=== PATIENT | male | born 1950 | race Caucasian/White ===

== ENCOUNTER 2023-07-29 12:57 | Emergency (ER) | payer OTHER, SELFPAY ==
[2023-07-29] VITALS (10 sets, daily range): BP systolic 139–158; BP diastolic 97–121; PULSE 63–70; RESP 5–18; TEMP 36; O2SAT 89–99; BMI 30.7
--- NOTE | 2023-07-29 13:18 | ED_ITS ---
HPI - Extremity Injury (Upper) General Time Seen by Provider: 13:15 <Demi Gunn MD - Last Filed: 07/29/23 15:40> Date Seen: 07/29/23 <Demi Gunn MD - Last Filed: 07/29/23 15:40> Chief Complaint: Extremity Pain/Injury, Upper <Demi Gunn MD - Last Filed: 07/29/23 15:40> Stated Complaint: R shoulder pain <Demi Gunn MD - Last Filed: 07/29/23 15:40> Time Seen by Provider: 07/29/23 13:04 <Demi Gunn MD - Last Filed: 07/29/23 15:40> Source: patient and RN notes reviewed <Demi Gunn MD - Last Filed: 07/29/23 15:40> Mode of arrival: ambulatory <Demi Gunn MD - Last Filed: 07/29/23 15:40> Limitations: no limitations <Demi Gunn MD - Last Filed: 07/29/23 15:40> History of Present Illness HPI narrative: Patient is coming to the ED with complaint of right shoulder pain after falling crossing over a wire fence today. He fell when he didn't clear his foot, landed on the outstretched right arm. Had pain in the upper arm near the shoulder after, no LOC, did not hit head. Is having no other complaints of other injury, no breathing difficulty, no chest/chest wall pain. Neck and back are fine, no acute pain. No numbness or tingling in the right arm. <Demi Gunn MD - Last Filed: 07/29/23 15:40> MD complaint: injury to: right and shoulder <Demi Gunn MD - Last Filed: 07/29/23 15:40> Related Data Allergies/Adverse Reactions: Allergies Allergy/AdvReac Type Severity Reaction Status Date / Time No Known Drug Allergies Allergy Verified 07/29/23 13:05 <Demi Gunn MD - Last Filed: 07/29/23 15:40> Review of Systems Narrative: As per HPI. <Demi Gunn MD - Last Filed: 07/29/23 15:40> [facility] Social History: Social History Smoking Status: Never smoker Do you use any of these nicotine containing products: None Second hand tobacco smoke exposure: Yes How often do you have a drink containing alcohol: 2-4 times a month How many standard drinks containing alcohol do you have on a typical day: 1 or 2 How often do you have six or more drinks on one occasion: Never AUDIT-C Alcohol total score: 2 Non-prescribed substance use: denies use service: Yes <Demi Gunn MD - Last Filed: 07/29/23 15:40> Exam Const: Vital Signs, click to edit/add: Vital Signs - 24 hr 07/29/23 13:08 07/29/23 14:03 07/29/23 14:26 Temperature 96.8 F L Pulse Rate Pulse Rate [Pulse Oximeter] 70 Respiratory Rate 18 Blood Pressure Blood Pressure [Le ft Upper Arm] 147/107 H Pulse Oximetry 95 94 97 Oxygen Delivery Me thod Room Air Oxygen Flow Rate 07/29/23 14:26 07/29/23 14:27 07/29/23 14:34 Temperature Pulse Rate 64 63 Pulse Rate [Pulse Oximeter] Respiratory Rate Blood Pressure 144/97 H Blood Pressure [Le ft Upper Arm] Pulse Oximetry 98 89 96 Oxygen Delivery Me thod Nasal Cannula Oxygen Flow Rate 4 07/29/23 14:35 07/29/23 14:41 07/29/23 14:42 Temperature Pulse Rate 67 65 65 Pulse Rate [Pulse Oximeter] Respiratory Rate 15 Blood Pressure 139/103 H 158/110 H Blood Pressure [Le ft Upper Arm] Pulse Oximetry 95 93 94 Oxygen Delivery Me thod Oxygen Flow Rate 07/29/23 14:45 07/29/23 14:48 Temperature Pulse Rate 69 68 Pulse Rate [Pulse Oximeter] Respiratory Rate 5 L Blood Pressure 146/121 H Blood Pressure [Le ft Upper Arm] Pulse Oximetry 99 99 Oxygen Delivery Me thod Oxygen Flow Rate Patient was observed holding his right arm straight along his body walking into the ED of his own accord. He is alert, interactive, no apparent distress. Sclera clear, face atraumatic, speaking in complete sentences. He has no palpable tenderness over his neck or back. Lungs are clear, good air entry, no wheezing or crackles. CV regular rate and rhythm, no murmur. Clavicles are nontender, AC joint on the right side is nontender. He complains of pain over the glenohumeral joint. There is maybe a sulcus that is more prominent posteriorly along the glenohumeral joint. He does still allow me to do some range of motion of his shoulder but it increases his pain. Mid arm throughout the lower extremity is without any complaints of pain on palpation. He can fully flex and extend rotate the elbow with his upper arm along his side. Wrist and hand are fully functional, neurovascular is intact. <Demi Gunn MD - Last Filed: 07/29/23 15:40> Vital Signs, click to edit/add: Vital Signs - 24 hr 07/29/23 13:08 07/29/23 14:03 07/29/23 14:26 Temperature 96.8 F L Pulse Rate Pulse Rate [Pulse Oximeter] 70 Respiratory Rate 18 Blood Pressure Blood Pressure [Le ft Upper Arm] 147/107 H Pulse Oximetry 95 94 97 Oxygen Delivery Me thod Room Air Oxygen Flow Rate 07/29/23 14:26 07/29/23 14:27 07/29/23 14:34 Temperature Pulse Rate 64 63 Pulse Rate [Pulse Oximeter] Respiratory Rate Blood Pressure 144/97 H Blood Pressure [Le ft Upper Arm] Pulse Oximetry 98 89 96 Oxygen Delivery Me thod Nasal Cannula Oxygen Flow Rate 4 07/29/23 14:35 07/29/23 14:41 07/29/23 14:42 Temperature Pulse Rate 67 65 65 Pulse Rate [Pulse Oximeter] Respiratory Rate 15 Blood Pressure 139/103 H 158/110 H Blood Pressure [Le ft Upper Arm] Pulse Oximetry 95 93 94 Oxygen Delivery Me thod Oxygen Flow Rate 07/29/23 14:45 07/29/23 14:48 Temperature Pulse Rate 69 68 Pulse Rate [Pulse Oximeter] Respiratory Rate 5 L Blood Pressure 146/121 H Blood Pressure [Le ft Upper Arm] Pulse Oximetry 99 99 Oxygen Delivery Me thod Oxygen Flow Rate <Nathaniel Brar MD - Last Filed: 07/29/23 15:41> Documenting provider has reviewed patient's vital signs: yes <Demi Gunn MD - Last Filed: 07/29/23 15:40> Course Course ED Course: Will obtain xray to see if there is an underlying fracture. Have reviewed with patient that there can be rotator cuff injury in this type of fall but would not be diagnosable off of an xray. First of all, rule out fracture with plain imaging, dislocation as well. Declines need for pain management at this time. <Demi Gunn MD - Last Filed: 07/29/23 15:40> Reevaluation(s) Time of Reevaluation #1: 14:17 <Demi Gunn MD - Last Filed: 07/29/23 15:40> Reevaluation #1: Reviewed with patient that his shoulder is actually dislocated. There may be a little avulsion fracture, will need to see post reduction imaging. Did attempt to gently manipulate his shoulder, it is apparent that we were going to need sedation for him. He had requested pain management, had just received 4 mg IV Zofran and 4 mg IV morphine prior to my a attempts at manipulating his shoulder. Did try to guide the humeral head from his axilla and rotate the humerus but there was no reduction of the shoulder. Patient will need to be removed from the exam room for intake into a different room so that we can do conscious sedation. I have let staff know. Patient on his past medical history did have cardiac stent placement this past December. He denies any other chronic medical issues. He takes Crestor at bedtime, is taking metoprolol, aspirin and Plavix in the morning. He notes he is on 1 other medicine but cannot remember what it is. Denies any issues with prior anesthesia. He did have a candy bar at noon but that is his only oral intake. <Demi Gunn MD - Last Filed: 07/29/23 15:40> Time of Reevaluation #2: 14:46 <Demi Gunn MD - Last Filed: 07/29/23 15:40> Reevaluation #2: Completed reduction of shoulder dislocation, post imaging two views shows reapproximation of the shoulder into the joint. There is still the small little possible bony island that represents a fracture from the dislocation. Patient is recovering and awakening from his sedation. Will place a sling on his arm, discharged home with orthopedic follow-up once he has completely recovered from his sedation. He has a good peripheral pulse, not awake enough at this time to assess his sense of numbness or tingling. <Demi Gunn MD - Last Filed: 07/29/23 15:40> Time of Reevaluation #3: 15:13 <Demi Gunn MD - Last Filed: 07/29/23 15:40> Reevaluation #3: Patient is resting comfortably, very minimally tired appearing after his sedation. Have reviewed the possible fracture from the dislocation. Orthopedics can further go over this with him. His arm is in a sling. He is neurologically intact. <Demi Gunn MD - Last Filed: 07/29/23 15:40> Vital Signs Vital signs: Initial Vital Signs Temperature 96.8 F L 07/29/23 13:08 Temperature Source Temporal Artery Scan 07/29/23 13:08 Pulse Rate 70 07/29/23 13:08 Pulse Rhythm Regular 07/29/23 13:08 Respiratory Rate 18 07/29/23 13:08 Blood Pressure 147/107 H 07/29/23 13:08 Blood Pressure Mean 120 H 07/29/23 13:08 Blood Pressure Position Sitting 07/29/23 13:08 Pulse Oximetry 95 07/29/23 13:08 Oxygen Delivery Method Room Air 07/29/23 13:08 Vital Signs Temperature 96.8 F L 07/29/23 13:08 Pulse Rate 70 07/29/23 13:08 Respiratory Rate 18 07/29/23 13:08 Blood Pressure 147/107 H 07/29/23 13:08 Pulse Oximetry 95 07/29/23 13:08 Oxygen Delivery Method Room Air 07/29/23 13:08 Temperature 96.8 F L 07/29/23 13:08 Pulse Rate 68 07/29/23 14:48 Respiratory Rate 5 L 07/29/23 14:48 Blood Pressure 146/121 H 07/29/23 14:48 Pulse Oximetry 99 07/29/23 14:48 Oxygen Delivery Method Nasal Cannula 07/29/23 14:26 Oxygen Flow Rate 4 07/29/23 14:26 <Demi Gunn MD - Last Filed: 07/29/23 15:40> Initial Vital Signs Temperature 96.8 F L 07/29/23 13:08 Temperature Source Temporal Artery Scan 07/29/23 13:08 Pulse Rate 70 07/29/23 13:08 Pulse Rhythm Regular 07/29/23 13:08 Respiratory Rate 18 07/29/23 13:08 Blood Pressure 147/107 H 07/29/23 13:08 Blood Pressure Mean 120 H 07/29/23 13:08 Blood Pressure Position Sitting 07/29/23 13:08 Pulse Oximetry 95 07/29/23 13:08 Oxygen Delivery Method Room Air 07/29/23 13:08 Vital Signs Temperature 96.8 F L 07/29/23 13:08 Pulse Rate 70 07/29/23 13:08 Respiratory Rate 18 07/29/23 13:08 Blood Pressure 147/107 H 07/29/23 13:08 Pulse Oximetry 95 07/29/23 13:08 Oxygen Delivery Method Room Air 07/29/23 13:08 Temperature 96.8 F L 07/29/23 13:08 Pulse Rate 68 07/29/23 14:48 Respiratory Rate 5 L 07/29/23 14:48 Blood Pressure 146/121 H 07/29/23 14:48 Pulse Oximetry 99 07/29/23 14:48 Oxygen Delivery Method Nasal Cannula 07/29/23 14:26 Oxygen Flow Rate 4 07/29/23 14:26 <Nathaniel Brar MD - Last Filed: 07/29/23 15:41> Medications Administered Medications: Discontinued Medications Generic Name Dose Route Start Last Admin Trade Name Freq PRN Reason Stop Dose Admin Morphine Sulfate 4 mg 07/29/23 14:03 07/29/23 14:10 Morphine 4 Mg/Ml Inj IVP 07/29/23 14:04 4 mg ONCE ONE Administration Ondansetron HCl 4 mg 07/29/23 14:03 07/29/23 14:09 Ondansetron 2 Mg/Ml Inj IVP 07/29/23 14:04 4 mg ONCE ONE Administration <Demi Gunn MD - Last Filed: 07/29/23 15:40> Discontinued Medications Generic Name Dose Route Start Last Admin Trade Name Marta PRN Reason Stop Dose Admin Morphine Sulfate 4 mg 07/29/23 14:03 07/29/23 14:10 Morphine 4 Mg/Ml Inj IVP 07/29/23 14:04 4 mg ONCE ONE Administration Ondansetron HCl 4 mg 07/29/23 14:03 07/29/23 14:09 Ondansetron 2 Mg/Ml Inj IVP 07/29/23 14:04 4 mg ONCE ONE Administration <Nathaniel Brar MD - Last Filed: 07/29/23 15:41> MDM - Extremity Injury (Upper) MDM Narrative Medical decision making narrative: I was asked to assist with sedation, the patient received 80 mg of propofol. He had good muscle relaxation, Dr. Montes was able to relocate the shoulder, x-ray is pending. RT was here throughout patient had a transient nasal trumpet placed in the started moving his head around and I had an excellent O2 sat of 96%. He is starting to wake up. He tolerated the procedure very well. <Demi Gunn MD - Last Filed: 07/29/23 15:40> I was asked to assist with sedation, the patient received 80 mg of propofol. He had good muscle relaxation, Dr. Gastelum was able to relocate the shoulder, x-ray is pending. RT was here throughout patient had a transient nasal trumpet placed in the started moving his head around and I had an excellent O2 sat of 96%. He is starting to wake up. He tolerated the procedure very well. <Nathaniel Brar MD - Last Filed: 07/29/23 15:41> Imaging Data XR right shoulder: Attestation: I have reviewed the pertinent imaging results. <Demi Valentin MD - Last Filed: 07/29/23 15:40> My impression: I see anterior dislocation, possible fracture fragment seen. Will await Radiology over-read. <Demi Gunn MD - Last Filed: 07/29/23 15:40> Radiologist's impression: Patient: FLAQUITA MONTES Facility:?[facility] Patient ID:?[id number] Site Patient ID:?[id number]. Site :?[id number] Study:?XRay Shoulder Right 3 views-07/29/2023 2:00:10 PM Ordering Physician:Teri Simms Final Report: Indication: Fall, pain Technique: Three views Comparison: None Findings/Impression: Anterior dislocation of the humerus relative to the glenohumeral joint. Density overlying the scapula, best appreciated on the Grashey view which could represent a small chip fragment such as from the inferior glenoid. Minimal discoid atelectasis right lung base. Dictated by Raoul Bee MD @ 07/29/2023 2:10:25 PM (Electronic Signature) Post reduction imaging report below: Patient: FLAQUITA MONTES Facility:?[facility] Patient ID:?[id number] Site Patient ID:?[id number]. Site :?1950 Study:?XRay Shoulder Right 1V PORTABLE-07/29/2023 3:00:54 PM Ordering Physician:Teri Simms Final Report: Indication: Postreduction. Technique: Right shoulder, 1 views. Comparison: July 29, 2023. Findings/Impression: Successful shoulder reduction. Re-demonstration of possible small chip fragment from the inferior glenoid. Additional Hill-Sachs deformity. Dictated by Franky aPtterson MD @ 07/29/2023 3:32:56 PM (Electronic Signature) <Demi Gunn MD - Last Filed: 07/29/23 15:40> Critical Care Time Critical Care Time Critical Care Time: No <Demi Gunn MD - Last Filed: 07/29/23 15:40> Discharge Plan Discharge Clinical Impression: Anterior dislocation of right shoulder Qualifiers: Encounter type: initial encounter Qualified Code(s): S43.014A - Anterior dislocation of right humerus, initial encounter <Demi Gunn MD - Last Filed: 07/29/23 15:40> Patient Disposition: Home, Self-Care <Demi Gunn MD - Last Filed: 07/29/23 15:40> Condition: Stable <Demi Gunn MD - Last Filed: 07/29/23 15:40> Instructions: Shoulder Dislocation (ED) <Demi Gunn MD - Last Filed: 07/29/23 15:40> Additional Instructions: Need to use sling for immobilization. Can use Tylenol per bottle directions as needed for pain control. Need to call Orthopedic office to get scheduled for follow-up in further management of your shoulder dislocation, phone number is [phone]. Can also try ice pack to the shoulder area, this may help with any residual discomfort you may have. <Demi Gunn MD - Last Filed: 07/29/23 15:40> Follow Up/Referrals: Nitin Pimentel MD [Primary Care Provider] - <Demi Gunn MD - Last Filed: 07/29/23 15:40> Stand Alone Forms: MyHealth Info Instructions <Demi Gunn MD - Last Filed: 07/29/23 15:40>
--- NOTE | 2023-07-29 13:27 | CRLHL7_ITS ---
For Patients: As a result of the Century Cures Act, medical imaging exams and procedure reports are released immediately into your electronic medical record. You may view this report before your referring provider. If you have questions, please contact your health care provider. Indication: Fall, pain Technique: Three views Comparison: None Findings/Impression: Anterior dislocation of the humerus relative to the glenohumeral joint. Density overlying the scapula, best appreciated on the Grashey view which could represent a small chip fragment such as from the inferior glenoid. Minimal discoid atelectasis right lung base. Dictated by Raoul Bee MD @ 07/29/2023 2:10:25 PM (Electronically Signed)
[2023-07-29] MEDS: ONDANSETRON 2 MG/ML inj 4 MG IVP (14:09)
[2023-07-29] MEDS: MORPHINE 4 MG/ML INJ IVP (14:10)
--- NOTE | 2023-07-29 14:37 | CRLHL7_ITS ---
For Patients: As a result of the Century Cures Act, medical imaging exams and procedure reports are released immediately into your electronic medical record. You may view this report before your referring provider. If you have questions, please contact your health care provider. Indication: Postreduction. Technique: Right shoulder, 1 views. Comparison: July 29, 2023. Findings/Impression: Successful shoulder reduction. Re-demonstration of possible small chip fragment from the inferior glenoid. Additional Hill-Sachs deformity. Dictated by Franky Patterson MD @ 07/29/2023 3:32:56 PM (Electronically Signed)
[2023-07-29] MEDS: PROPOFOL 10 MG/ML INJ 200 MG IVP (15:30)
--- NOTE | 2023-07-29 15:50 | RESP.RT ---
SB assist for conscious sedation. Pt initially on 4L saturating 94%. See nursing notes for rest of vitals. Pt required 4 minutes of respiratory assist with ambu mask post procedure. BBS clear.
--- NOTE | 2023-07-29 16:01 | ED.NURSE ---
Q5 vital signs printed along with sedation packet.
== END 2023-07-29 15:40 | disposition home or self-care (01) ==
PROVIDERS: Emergency Provider Family Medicine; PCP Surgery
DX: S43.014A Anterior dislocation of right humerus, initial encounter (principal); W01.198A Fall on same level from slipping, tripping and stumbling with subsequent striking against other object, initial encounter
CPT/HCPCS: 23650; 73020; 73030; 94761; 99156; 99284; 99291; J2270; J2405; J2704

== ENCOUNTER 2023-08-10 08:56 | Outpatient (CLI) | payer OTHER, SELFPAY ==
--- NOTE | 2023-08-10 09:15 | MR_ITS ---
[address] [address] Phone:?[phone] Fax:?[phone] Referring Physician Information: Bubba Bueno M.D. [address] [facility] [address] Phone:?[phone] Fax:?[phone] Patient:Bran Leon D.O.B:?1950 Sex:?Male Phone:?[phone] [facility] MRN:?[id number] Exam Date:?08/10/2023 EXAM: MRI EXAMINATION OF THE RIGHT SHOULDER CLINICAL INFORMATION: Right shoulder pain. Possible rotator cuff tear following dislocation. TECHNICAL INFORMATION: Coronal STIR as well as axial, sagittal and coronal PD and T2-weighted images acquired. No prior studies for comparison. INTERPRETATION: Bones: There is a 1.8 x 2.3 cm Hill-Sachs impaction deformity with moderate impaction and marked associated bone marrow edema signal. There is a 2.3 cm craniocaudal by 0.7 cm AP acute, mild to moderately displaced fracture involving the anteroinferior aspect of the glenoid with marked surrounding bone marrow edema signal. No other fracture. Rotator Cuff: There is complete rupture identified involving the supraspinatus tendon insertion. Full-thickness tear continues involving the anterior one third of the infraspinatus tendon. Maximal tendon retraction is midway between the glenohumeral joint and mid humeral head level. Mild infraspinatus muscle belly atrophy. The teres minor tendon is intact. Moderate subscapularis tendinopathy. Coracoacromial arch: There is no discrete subacromial osseous spur. The bony acromiohumeral interval is measuring 4 mm. There is no thickening identified of the coracoacromial ligament. 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 Biceps tendon: Series 3 image 18 demonstrates medial subluxation of the long head biceps tendon from the far superior bicipital. The tendon is normally intact intra-articular. Glenohumeral joint and labrum: There is a moderate glenohumeral joint effusion. No discrete loose body within the joint. Previously described fracture from the anteroinferior aspect of the glenoid. No other appreciable glenohumeral chondromalacia. No discrete SLAP tear. There is tearing through the remainder of the inferior labrum and also throughout the posterior labrum. No discrete paralabral cyst is identified. CONCLUSION: 1. MRI appearance in keeping with residua of acute anterior shoulder dislocation injury. Associated Hill-Sachs impaction deformity with moderate impaction. 2. There is also an associated 2.3 x 0.7 cm acute mild to moderately displaced osteocartilaginous Bankart lesion. Tearing continues throughout the inferior and posterior labrum as well. 3. Complete rupture of the supraspinatus tendon insertion continues as a full- thickness tear involving the anterior one third of the infraspinatus tendon insertion. Maximal tendon retraction is midway between the glenohumeral joint and mid humeral head level. Mild infraspinatus muscle belly atrophy. 4. Moderate subscapularis tendinopathy. 5. Biceps sudha lesion with medial subluxation of the long biceps tendon from the far superior bicipital groove. The tendon is normally intact intra- articular. 6. 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 KES Electronically signed on 08/10/2023 12:08:00 PM by Panchito Saeed M.D.
== END 2023-08-10 08:57 | disposition home or self-care (01) ==
LOC: MRI 08:57
PROVIDERS: PCP Surgery; Visit Provider Orthopaedic Surgery Sports Medicine
DX: M25.511 Pain in right shoulder (principal); M75.101 Unspecified rotator cuff tear or rupture of right shoulder, not specified as traumatic; M19.011 Primary osteoarthritis, right shoulder
CPT/HCPCS: 73221

== ENCOUNTER 2023-09-02 06:55 | Day surgery (SDC) | payer OTHER, SELFPAY ==
--- OUTSIDE RECORDS SUMMARY | 2023-09-02 06:57 | XMS_ITS | Clinical Summary ---
Author Name Unknown Organization [facility] Address [place], [place] [address] Care Team Providers Care Artificial Stone Applicator Name Role Phone Gem Ca PLANT OPERATIONS VICE PRESIDENT Unavailable [phone] Khloe Sykes DO Primary Care Provider Allergies No known active allergies Medications Medication Sig Dispensed Refills Start Date End Date Status aspirin (ECOTRIN) 81 mg enteric coated tablet Take 1 Tablet (81 mg) by mouth once daily with a meal. 0 10/28/2021 Active fluticasone (50 mcg per actuation) nasal solution (FLONASE)Indications: Sinus congestion Inhale 2 Sprays to both nostrils once daily. 16 g 0 10/17/2022 Active rosuvastatin (CRESTOR) 40 mg tabletIndications:Abn ormal stress ECG Take 1 Tablet (40 mg) by mouth at bedtime. 90 Tablet 3 11/20/2022 Active nitroglycerin (NITROSTAT) 0.4 mg sublingual tabletIndications:Eryn st pain on exertion Place 1 Tablet (0.4 mg) under the tongue every 5 minutes if needed for Chest Pain. 25 Tablet 0 11/20/2022 Active metoprolol succinate (TOPROL XL) 25 mg Sustained-Release tabletIndications:Cor onary artery disease, unspecified vessel or lesion type, unspecified whether angina present, unspecified whether [place] or transplanted heart Take 1 Tablet (25 mg) by mouth once daily. 90 Tablet 3 12/23/2022 Active valsartan (DIOVAN) 40 mg tabletIndications:HTN (hypertension) Take 0.5 Tablets (20 mg) by mouth once daily. 45 Tablet 3 12/23/2022 Active clopidogreL (PLAVIX) 75 mg tabletIndications:Cor onary artery disease, unspecified vessel or lesion type, unspecified whether angina present, unspecified whether [place] or transplanted heart Take 1 Tablet (75 mg) by mouth once daily. 90 Tablet 3 12/23/2022 Active Active Problems Problem Noted Date Diagnosed Date Anterior dislocation of right shoulder 4 HLD (hyperlipidemia) 12/19/2022 CAD (coronary artery disease) 12/19/2022 Elevated serum creatinine 12/19/2022 Elevated fasting glucose 12/19/2022 FLORENTIN 10/22/2005 AHI-53 03/07/2022 Colon polyp 01/17/2022 Overview: Colonoscopy 01/2022 2-TA, repeat in 7 years MRSA (methicillin resistant Staphylococcus aureus) infection 06/25/2015 Orthopedic aftercare (s/p OR IF of left elbow fracture 02/12/14) 02/20/2014 Other orthopedic aftercare(V 54.89) (s/p left hip EUA 02/12/14) 02/20/2014 Screen for colon cancer 08/26/2011 Overview: Colonoscopy 08/2011 diverticulosis repeat in 10 years Malignant neoplasm of prostate 07/23/2010 Family history of malignant neoplasm of prostate 06/05/2008 Resolved Problems Problem Noted Date Diagnosed Date Resolved Date Closed left acetabular fracture 02/20/2014 08/28/2016 Open fracture dislocation of elbow joint 02/20/2014 08/28/2016 Encounters Date Type Department Care Team Description 09/01/2023 9:00 AM VP SCI[facility] A[facility]AIRS Office Visit [facility] [address] [facility] [address] [place] [address] Epi Rachel MD CV General Cardiology Est (IN PERSON ARJUN REF CARDIAC CLEARANCE FOR ROTATOR CUFF SURGERY//PCP: Khloe Sykes DO/) 09/01/2023 Travel 08/28/2023 Telephone [facility] [address] [facility] [address] [place] [address] Cardiology, Anw Appointment (ARJUN- ANY CARD OR [place]) 08/28/2023 Orders Only [facility] [address] [place] [address] Khloe Sykes, <No scans attached> 08/27/2023 8:30 AM VP [facility] Preop Visit [facility] [address] [place] [address] Khloe Sykes DO Preoperative Exam (Bubba Riojas - RIGHT rotator cuff - [facility] - 09/02/2023) 08/27/2023 Travel 08/10/2023 Orders Only [facility] Scanner 1 scan: (1-Ord) [facility], RT SHOULDER, 08/10/2023 07/29/2023 Orders Only [facility] Scanner 1 scan: (1-Ord) [place], XR SHOULDER RT MIN 2V, 07/29/2023 from Last 3 Months Immunizations Name Administration Dates Next Due COVID-19 Vaccine Spikevax (M oderna 50mcg/0.5mL) 12YO+ 7219-3021 Formula PF 05/27/2023 COVID-19 vaccine ([employer] NTech 30mcg/0.3mL) 12YO+ BIVALENT PF, MDV 04/07/2022 COVID-19 vaccine ([employer] NTech 30mcg/0.3mL) PF, MDV 06/20/2021,10/13/2020,09/22/2020 HepA-HepB (Twinrix) 07/24/2014,02/11/2014,2013 Hepatitis B (Adult) 09/23/2002 Influenza, IIV3 (Age >=3 years) 07/22/2016,06/19 Influenza, IIV4 06/25/2015,03/24/2014 Influenza, Inactivated AIIV4 (Age 65+ Years) Preserv Free 05/27/2023,04/07/2022,08/02/2020 Influenza, Inactivated IIV3 (Age 65+ Years) Preserv Free 08/31/2017 Pneumococcal Poly,23-Valent (Pneumovax) 08/02/19 21 Pneumococcal conj 13-Valent (Prevnar 13) 018 Td (Age >=7 Years) 02/25/2002,09/07/1996 Tdap 08/15/2020,07/23/2010 Zoster (Shingrix-RZV, recombinant) 03/17/2023, Zoster (Zostavax-ZVL, live) 08/28/2016 Family History Medical History Relation Name Comments Cancer-prostate Brother 6 Cancer-prostate Brother 7 Good Health Brother 8 Good Health Brother 9 Good Health Brother 10 Good Health Daughter 3 Good Health Daughter 4 Cancer Father lung Asthma Mother Heart Disease Mother rhythm problem s, bicuspid valve Other Mother colitis Good Health Sister 5 Good Health Sister 6 Good Health Sister 7 Good Health Sister 8 Good Health Son 3 Good Health Son 4 Relation Name Status Comments Brother 1 Alive Brother 2 Alive Brother 3 Alive Brother 4 Alive Brother 5 Alive Brother 6 Brother 7 Brother 8 Brother 9 Brother 10 Daughter 1 Alive Daughter 2 Alive Daughter 3 Daughter 4 Father (Age 62) lung cance r Mother Alive Sister 1 Alive Sister 2 Alive Sister 3 Alive Sister 4 Alive Sister 5 Sister 6 Sister 7 Sister 8 Son 1 Alive Son 2 Alive Son 3 Son 4 Social History Tobacco Use Types Packs/Day Years Used Date Smoking Tobacco: Never Smokeless Tobacco: Never Tobacco Cessation:Counseling Given: Yes Alcohol Use Standard Drinks/Week Comments Yes 0 (1 standard drink = 0.6 oz pur e alcohol) occassional PHQ-2 Answer Date Recorded PHQ-2 TOTAL SCORE 0 10/17/2022 Social Connections Answer Date Recorded Frequency of Communication with Friends and Fami ly Not on file 07/20/2021 Financial Resource Strain Answer Date R ecorded Difficulty of Paying Living Expenses Not on file 07/20/2021 Difficulty of Paying Living Expenses Not on file 07/20/2021 Sex and Gender Information Value Date Recorded Sex Assigned at Not on file Gender Identity Not on file Sexual Orientation Not on file Obstetrics History Last Filed Vital Signs Vital Sign Reading Time Taken Comments Blood Pressure 119/83 09/01/2023 9:08 AM [facility] Pulse 65 09/01/2023 9:08 AM [facility] Temperature 36.5 ??C (97.7 ??F) 12/20/2022 8:51 AM CD T Respiratory Rate 18 12/20/2022 8:51 AM CDT Oxygen Saturation 97% 09/01/2023 9:08 AM [facility] Inhaled Oxygen Concentration - - Weight 86.6 kg (191 lb) 09/01/2023 9:08 AM [facility] Height 167.6 cm (5' 6) 09/01/2023 9:08 AM [facility] Body Mass Index 30.83 09/01/2023 9:08 AM VP [facility] Plan of Treatment Health Maintenance Due Date Last Done Comments Depression screening for age 12+ 10/18/2023 10/17/2022, 10/30/2021, 10/28/2021, Additional history exists Medicare Wellness for age 65+ 10/18/2023 (Verified in Care Everywhere or Patient Record), 10/28/2021, 08/02/2020, Additional history exists BMI (ht and wt on same day) for age 18+ 09/01/2024 09/01/2023, 11/24/2022, 10/17/2022, Additional history exists Lipids for age 45-75 10/18/2027 10/17/2022, 10/28/2021, 11/06/2020, Additional history exists Colonoscopy through age 75 01/15/202901/15, 01/15/2022, 01/15/2022, Additional history exists Tetanus booster 08/15/2030 08/15/2020, 10/2010, 02/25/2002, Additional history exists Hepatitis C screening for ag e 18-79 Completed 08/28/2016 Pneumococcal series for age 65+ Completed , 08/31/2017 Tdap Completed 08/15/2020, 07/23/2010 Zoster (shingles) series for age 50+ Completed 03/17/2023, 11/11/2022, 08/28/2016 COVID-19 vaccine series Completed 05/27/20, 04/07/2022, 06/20/2021, Additional history exists Influenza for age 65+ Completed 05/27/2023 , 04/07/2022, 08/02/2020, Additional history exists Procedures Procedure Name Priority Date/Time Associated Diagnosis Comments EKG 12 LEAD Routine 09/01/2023 9:02 AM [facility] Pre-op evaluation POTASSIUM Routine 08/27/2023 9:17 AM [facility] Pre-op evaluation SCAN-MRI INTERPRETATION 08/10/19 12:00 AM [facility] SCAN-RADIOLOGY REPORT 07/29/2023 12:00 AM [facility] from Last 3 Months Results * POTASSIUM (08/27/2023 9:17 AM VP [facility]) POTASSIUM 4.2 3.5 - 5.1 mmol/L 08/27/2023 5:51 PM [facility] Blood BLOOD SPECIMEN / Unknown Venipuncture / Unknown 08/27/2023 9:17 AM [facility] 08/27/2023 9:18 AM [facility] Khloe Sykes DO CHEMISTRY [facility] [address] [place] [address], * SCAN-MRI INTERPRETATION (08/10/2023 12:00 AM [facility]) Anatomical Region Laterality Modality Other Scanner OTHER * SCAN-RADIOLOGY REPORT (07/29/2023 12:00 AM [facility]) Anatomical Region Laterality Modality Other Scanner OTHER from Last 3 Months Advance Directives Documents on File Type Date Recorded Patient Oil Treater Expl anation Healthcare Directive 10/20/2022 2:45 PM HEA LT CARE DIRECTIVE 10/17/2022 Latest Code Status on File Code Status Date Activated Date Inactivated Comments Full Code 12/19/2022 4:08 PM 12/20/2022 3:52 PM Question Answer Comments Code Status Discussion: Reviewed Preferences Care Teams Artificial Stone Applicator Relationship Specialty Start Date End Date Khloe Sykes DO [address] [place] [address] PCP - General Family Practice 11/24/22 Gem Ca NP Nurse Practitioner Nurse Practitioner 02/18/14
[2023-09-02 07:40] VITALS: BMI 31.3
--- NOTE | 2023-09-02 07:46 | W.PM.H&PU ---
History & Physical Update History & Physical Update H&P Reviewed and patient assessed: No changes noted
[2023-09-02 07:53] VITALS: BP 120/91; PULSE 63; RESP 16; TEMP 36.7; O2SAT 94
[2023-09-02] MEDS: SODIUM CHLORIDE 0.9 % (FLUSH) 10 ML SYRINGE IVF (08:09)
[2023-09-02] MEDS: LACTATED RINGERS 1000 ML 1,000 ML 100 ML IV (08:11)
--- NOTE | 2023-09-02 08:22 | SUR.PREOP ---
Pt states he took his Plavix 09/01 in the AM. Informed MDA, he consulted Dr. Bueno, Dr. Bueno decided to cancel the case due to risk of bleeding. Pt will reschedule. IV d/c'd. pressure dressing applied.
== END 2023-09-02 08:48 | disposition home or self-care (01) ==
PROVIDERS: PCP Surgery; Visit Provider Orthopaedic Surgery Sports Medicine
PROC: (CPT 29805; principal; 2023-09-02 10:00)
DX: Z53.09 Procedure and treatment not carried out because of other contraindication (principal); M75.101 Unspecified rotator cuff tear or rupture of right shoulder, not specified as traumatic; M19.011 Primary osteoarthritis, right shoulder
CPT/HCPCS: J7120

== ENCOUNTER 2023-09-07 06:56 | Day surgery (SDC) | payer OTHER, SELFPAY ==
[2023-09-07] VITALS (16 sets, daily range): BP systolic 91–130; BP diastolic 41–90; PULSE 55–74; RESP 16–18; TEMP 36.1–36.4; O2SAT 92–97; BMI 31.4
--- OUTSIDE RECORDS SUMMARY | 2023-09-07 06:59 | XMS_ITS | Clinical Summary ---
Author Name Unknown Organization [employer] [facility] [employer] Address [place], [place] [address] Care Team Providers Care Turbine Room Attendant Name Role Phone Gem Ca CORE MACHINE OPERATOR Unavailable [phone] Khloe Sykes DO Primary Care Provider [phone] Allergies No known active allergies Medications Medication [...] type, unspecified whether angina present, unspecified whether [place] or transplanted heart Take 1 Tablet (25 mg) by mouth once daily. 90 Tablet 3 12/23/2022 Active valsartan (DIOVAN) 40 mg tabletIndications:HTN (hypertension) Take 0.5 Tablets (20 mg) by mouth once daily. 45 Tablet 3 12/23/2022 Active clopidogreL (PLAVIX) 75 mg tabletIndications:Cor onary artery disease, unspecified vessel or lesion type, unspecified whether angina present, unspecified whether [place] or transplanted heart Take 1 Tablet (75 [...] Department Care Team Description 09/01/2023 9:00 AM LOG RAFTER Office [place] [facility] [address] [facility] [address] [place] [address] Epi Rachel MD CV General Cardiology Est (IN PERSON ARJUN REF CARDIAC CLEARANCE FOR ROTATOR CUFF SURGERY//PCP: Khloe Sykes DO/) 09/01/2023 Travel 08/28/2023 Telephone [facility] [address] [facility] [address] [place] [address] Cardiology, Anw Appointment (ARJUN- ANY CARD OR [place]) 08/28/2023 Orders Only [facility] [address] [place] [address] Khloe Sykes, <No scans attached> 08/27/2023 8:30 AM LOG RAFTER Preop Visit [facility] [address] [place] [address] Khloe Sykes DO Preoperative Exam (Bubba Riojas - RIGHT rotator cuff - [facility] - 09/02/2023) 08/27/2023 Travel 08/10/2023 Orders Only [facility] Scanner 1 scan: (1-Ord) [facility], RT SHOULDER, 08/10/2023 07/29/2023 Orders Only [facility] Scanner 1 scan: (1-Ord) [place], XR SHOULDER RT MIN 2V, 07/29/2023 from Last 3 Months Immunizations Name Administration Dates Next Due COVID-19 Vaccine Spikevax (M oderna 50mcg/0.5mL) 12YO+ 2853-8167 Formula PF 05/27/2023 COVID-19 vaccine ([employer] NTech 30mcg/0.3mL) 12YO+ BIVALENT PF, MDV 04/07/2022 COVID-19 vaccine ([employer] NTech 30mcg/0.3mL) PF, MDV 06/20/2021,10/13/2020,09/22/2020 HepA-HepB (Twinrix) [...] Comments Blood Pressure 119/83 09/01/2023 9:08 AM LOG RAFTER Pulse 65 09/01/2023 9:08 AM LOG RAFTER Temperature 36.5 ??C (97.7 ??F) 12/20/2022 8:51 AM CD T Respiratory Rate 18 12/20/2022 8:51 AM CDT Oxygen Saturation 97% 09/01/2023 9:08 AM LOG RAFTER Inhaled Oxygen Concentration - - Weight 86.6 kg (191 lb) 09/01/2023 9:08 AM LOG RAFTER Height 167.6 cm (5' 6) 09/01/2023 9:08 AM LOG RAFTER Body Mass Index 30.83 09/01/2023 9:08 AM LOG RAFTER Plan of Treatment Health Maintenance Due Date [...] EKG 12 LEAD Routine 09/01/2023 9:02 AM LOG RAFTER Pre-op evaluation POTASSIUM Routine 08/27/2023 9:17 AM LOG RAFTER Pre-op evaluation SCAN-MRI INTERPRETATION 08/10/19 12:00 AM LOG RAFTER SCAN-RADIOLOGY REPORT 07/29/2023 12:00 AM LOG RAFTER from Last 3 Months Results * EKG 12 LEAD (09/01/2023 9:02 AM LOG RAFTER) Interpretation Sinus rhythm with 1st degree A-V block Otherwise normal ECG Ventricular Rate 65 BPM Atrial Rate 65 BPM P-R Interval 260 ms QRS Duration 90 ms QT 386 ms QTc 401 ms P Emerson 40 degrees R Emerson 28 degrees T Emerson 40 degrees 09/01/2023 9:02 AM LOG RAFTER 09/02/2023 9:09 AM LOG RAFTER Epi Rachel MD EKG ORD * POTASSIUM (08/27/2023 9:17 AM LOG RAFTER) POTASSIUM 4.2 3.5 - 5.1 mmol/L 08/27/2023 5:51 PM LOG RAFTER [facility] [place] [facility] Blood BLOOD SPECIMEN / Unknown Venipuncture / Unknown 08/27/2023 9:17 AM LOG RAFTER 08/27/2023 9:18 AM LOG RAFTER Khloe Sykes DO CHEMISTRY [facility] [address] [place] [address], * SCAN-MRI INTERPRETATION (08/10/2023 12:00 AM LOG RAFTER) Anatomical Region Laterality Modality Other Scanner OTHER * SCAN-RADIOLOGY REPORT (07/29/2023 12:00 AM LOG RAFTER) Anatomical Region Laterality Modality Other Scanner OTHER from Last 3 Months Advance Directives Documents on File Type Date Recorded Patient Nursing Resident Expl anation Healthcare Directive 10/20/2022 2:45 PM HEA LTH CARE DIRECTIVE 10/17/2022 Latest Code Status on File Code Status Date Activated Date Inactivated Comments Full Code 12/19/2022 4:08 PM 12/20/2022 3:52 PM Question Answer Comments Code Status Discussion: Reviewed Preferences Care Teams Turbine Room Attendant Relationship Specialty Start Date End Date Khloe Sykes DO [address] [place] [address] PCP - General Family Practice 11/24/22 Gem Ca NP Nurse Practitioner Nurse Practitioner 02/18/14
--- NOTE | 2023-09-07 07:35 | W.PM.H&PU ---
History & Physical Update History & Physical Update H&P Reviewed and patient assessed: No changes noted
[2023-09-07] MEDS: LACTATED RINGERS 1000 ML 1,000 ML 100 ML IV ×2 (07:45→10:15)
[2023-09-07] MEDS: SODIUM CHLORIDE 0.9 % (FLUSH) 10 ML SYRINGE IVF (07:45)
[2023-09-07] MEDS: MIDAZOLAM HCL 1 MG/ML inj IVP (08:10)
[2023-09-07] MEDS: fentaNYL 100 MCG/2 ML inj IVP (08:10)
--- NOTE | 2023-09-07 08:14 | SUR.PREOP ---
TIME?OUT:?8:15 PT/RN/MDA?VERIFICATION?OF?SURGICAL?SITE,?PROCEDURE,?AND?CONSENT OBTAINED?PRIOR?TO?INVASIVE?PROCEDURE.
[2023-09-07] MEDS: CEFAZOLIN 2 GM in 0.9 % SODIUM CHLORIDE Mini-bag 100 ML IVPB (09:10)
--- NOTE | 2023-09-07 09:10 | P.NB_ITS ---
Nerve Block Nerve Block Time Seen by Provider: 08:20 Date Seen: 09/07/23 Type of block requested by surgeon for post-operative analgesia: supraclavicular Side: right Time out performed: Yes Verification of patient name: Yes Verification of date of : Yes Site marking: site marked Name of person performing procedure: Jadon Continuous monitoring Was continuous monitoring of O2 sat, B/P, classroom monitor, recorded every 15 minutes?: Yes Procedure Checklist: sterile prep, needles and gloves Ultrasound guided. Images saved: Yes Medications given in 5ml increments after negative aspiration: Ropivicaine %: 0.5 mL: 20 Needle gauge: 22 Decadron (mg): 10 Precedex (mcg): 25 Patient tolerated procedure well: Yes Block Charges Block Charge (with Pro Fee): Brachial Plexus Use of Ultrasound Machine for Block: Yes- US Guidance/pain block
--- NOTE | 2023-09-07 09:11 | W.ANESCHARGE ---
Anesthesia Charges Start Date/Time Anesthesia Start Date: 09/07/23 Anesthesia Start Time: 08:57 Stop Date/Time Anesthesia Stop Date: 09/07/23 Anesthesia Stop Time: 13:03 Summary Extremes of Age - Over 70 or under 1: MDA
[2023-09-07] MEDS: EPINEPHrine 1 MG in SODIUM CHLORIDE IRRIG SOLUTION 3,000 ML 9003 MG IRRIGATION ×7 (09:42→11:21)
--- NOTE | 2023-09-07 10:08 | P.ANES_ITS ---
Anesthesia Charges Start Date/Time Anesthesia Start Date: 09/07/23 Anesthesia Start Time: 08:57 Stop Date/Time Anesthesia Stop Date: 09/07/23 Anesthesia Stop Time: 13:03 Summary Extremes of Age - Over 70 or under 1: GEAR SHAVER SET UP OPERATOR
[2023-09-07] MEDS: EPINEPHrine 1 MG in SODIUM CHLORIDE IRRIG SOLUTION 3,000 ML 3001 MG IRRIGATION (12:29)
--- NOTE | 2023-09-07 12:41 | PM.ORPRC ---
Procedure Note Date of procedure: 09/07/23 Procedure: PREOPERATIVE DIAGNOSES: 1. Right shoulder rotator cuff tear. 2. Right shoulder AC degenerative joint disease, primary, moderate-severe 3. Right shoulder long head of biceps partial-thickness tearing with medial subluxation out of the groove. 4. Right shoulder anterior inferior labral tear/bony Bankart injury. 5. Right shoulder subacromial impingement syndrome. POSTOPERATIVE DIAGNOSES: 1. Right shoulder rotator cuff tear. 2. Right shoulder AC degenerative joint disease, primary, moderate-severe 3. Right shoulder long head of biceps partial-thickness tearing with medial subluxation out of the groove. 4. Right shoulder anterior inferior labral tear/bony Bankart injury. 5. Right shoulder subacromial impingement syndrome. 6. Right shoulder chondral loss anterior inferior glenoid. 7. Right shoulder loose body NAME OF OPERATION: 1. Right shoulder arthroscopic rotator cuff repair - massive 3 tendon repair 2. Right shoulder arthroscopic Bankart/labral repair 3. Right shoulder arthroscopic biceps tenodesis 4. Right shoulder arthroscopic distal clavicle excision 5. Right shoulder arthroscopic extensive glenohumeral debridement 6. Right shoulder arthroscopic bursectomy, subacromial decompression/partial acromioplasty. SURGEON: Bubba Bueno MD MDM DEVELOPER: Jhon MASON. Of note, a skilled inventory control assistant was critical for this case to aide in patient positioning, suture manipulation, arm positioning, instrument positioning, and closure. ANESTHESIA: General plus preoperative supraclavicular block. EBL: 50 mL IMPLANTS: Arthrex 4.75 mm BioComposite SwiveLock suture anchor (x3) Arthrex 5.5 mm BioComposite SwiveLock suture anchor (x2); Arthrex 1.8 mm knotless FiberTak (x3) COMPLICATIONS: None evident INDICATIONS: The patient is a pleasant, 73-year-old male who sustained a right shoulder dislocation. He had significant pain, weakness, and dysfunction. Exam was concerning for rotator cuff tear. MRI was obtained indeed confirm a rotator cuff tear as well as anterior inferior glenoid labral tearing/subtle bony Bankart injury, the biceps subluxation, AC joint arthrosis, etc. Given their findings, as well as the weakness and pain, and inadequate response to nonoperative management, recommendation was made for surgery. FINDINGS: Exam under anesthesia revealed stable shoulder with excellent range of motion. 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 There was grade 4 chondral loss of the anterior inferior glenoid. There was a loose chondral fragment in the axillary pouch that measured approximately 6 x 5 x 3 mm. Appear to be consistent with the chondral defect from the anterior inferior glenoid. There was bone exposed on the anterior inferior glenoid as well and there was a need to debride some of this bone of the glenoid as well. Finally, there was debridement of the biceps stump at its origin, rotator interval capsular tissue, humeral head bone as well. The Subscapularis tendon was torn from its upper border with moderate retraction. The long head of the biceps tendon was torn in a moderate grade partial-thickness manner as well as dislocation of the bicipital groove.. The superior rotator cuff tendon was found to be torn full-thickness throughout the entire supraspinatus and majority of the infraspinatus with retraction posteriorly with an L-shaped type tear. The labrum was torn in the anterior and anterior inferior portions consistent with the MRI is suggestive findings. A loose body was seen in the axillary pouch but not in the subscapularis recess. PROCEDURE: Following a thorough discussion of risks, benefits, and alternatives, consent was obtained and the right shoulder was marked. The patient was brought to the operating room and placed supine on the operating table. Induction of anesthesia was completed after preoperative supraclavicular block was administered in preop holding. Appropriate time out was performed identifying proper patient, site, and procedure. 2 g IV Ancef was administered within 1 hour of incision preoperatively. The right upper extremity was prepped and draped in the appropriate sterile fashion using ChloraPrep prep. This was after the patient was positioned in the beach chair with their head in neutral alignment and all bony prominences well padded. The shoulder was insufflated with 20mL of normal saline via an 18g spinal needle from a posterior approach. An 11 blade skin incision allowed a blunt trochar to be inserted and diagnostic arthroscopy to be performed with the findings as noted above. An anterior portal was established with an outside in technique. This allowed the probe to be inserted and confirm the diagnostic arthroscopic findings. The shaver was then inserted and allowed debridement of the anterior unstable labral flap tissue. We also debrided anterior glenoid loose chondral flaps and anterior glenoid bone. Anterior humeral head bone was also debrided along with the biceps stump. Evaluation of the inferior glenohumeral ligament/anterior inferior labrum showed tearing and retraction of tissue away from the glenoid. Given chondral/osteochondral injury to the anterior inferior glenoid, it was felt that repair would be prudent to help with stabilization of the shoulder glenohumeral joint. Thus, a Bankart repair was undertaken. The labral tissue was mobilized with a liberator elevator and the IGHL was grasped with a [place] and found to have much improved excursion. Initially, a scorpion was utilized to pass around the inferior labral/capsulolabral tissue. This was brought to a 1.8 mm FiberTak knotless anchor. 2 more anchors were placed of the clock face. The initial was at approximately 5:30, then 4:30 and 3:30. Excellent reapproximation of the labral tissue was achieved after the liberator elevator, rasping, and shaving through prepare the tissue and the bone bed on the glenoid. Thereafter, the long head of the biceps pathology was addressed. It was captured in a loop 'n tack technique for biceps tenodesis. This was done arthroscopically. This was dunked into the anterior lesser tuberosity 4.75mm biocomposite swivelock anchor that was also utilized for the subscapularis repair as noted below. Following this, the upper border subscapularis was repaired after debriding the lesser tuberosity with the shaver and Brenton cautery. Subscapularis was captured in horizontal mattress fashion with a fiber tape suture. The tails were brought to a single anchor in the lesser tuberosity with excellent reapproximation of the subscap tendon and good excursion/tension. Thereafter, the subacromial space was entered. Here, a complete bursectomy and partial acromioplasty/subacromial decompression was performed with a combination of radiofrequency ablator, the shaver, and a 5.5 mm bur. Additionally, distal clavicle excision was performed with the bur. 8 mm of distal clavicle was resected based on the with of our bur. Further inspection of the supraspinatus and infraspinatus rotator cuff was performed. This identified the tear as noted above. The margins of the tear were debrided, and the greater tuberosity was debrided with a combination of the apollo cautery, shaver, and bur on reverse setting. After gentle decortication, a speed bridge configuration with a medial sudha was engaged. 2 medial 4.75 mm knotless BioComposite SwiveLock suture anchors were placed and the sutures were passed with a fiber link. The knotless mechanism suture tails were then retrieved, exchanged, and cinched down for the medial sudha purpose. A FiberTape tail from each of the medial row anchor FiberTapes were then brought to a lateral row 5.5 mm BioComposite SwiveLock suture anchor. Excellent reapproximation of the tissue to the greater tuberosity was achieved with broad footprint compression. The rotator cuff showed excellent reapproximation of the greater tuberosity with good security upon probing. 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 The shoulder was placed through range of motion and found to be stable. The rotator cuff was re-probed and found to be stable. Instruments were removed. Excess fluid was drained, closure performed with 4-0 Monocryl and Steri-Strips. Dressings were applied. Sling was applied. The patient was awoken from anesthesia and transferred to the PACU in stable condition. A skilled inventory control assistant was critical for this case to aid in patient positioning, limb positioning, skill to manipulate arthroscopic instruments and camera, suture management, patient safety, and closure. PLAN: 1. Elbow, forearm, wrist and digit range of motion as tolerated. 2. Encouraged ice. 3. Oxycodone for pain as needed. 4. Sling at all times except for ROM and showering. 5. Follow up with PA visit in 1-2 weeks for wound check. Initiate physical therapy following that visit for passive range of motion. Initiate active assisted range of motion at 6 weeks. May do pendulums now.
== END 2023-09-07 14:55 | disposition home or self-care (01) ==
PROVIDERS: PCP Surgery; Visit Provider Orthopaedic Surgery Sports Medicine
PROC: (CPT 29805; principal; 2023-09-07 09:00)
DX: S46.011A Strain of muscle(s) and tendon(s) of the rotator cuff of right shoulder, initial encounter (principal); S46.111A Strain of muscle, fascia and tendon of long head of biceps, right arm, initial encounter; S43.431A Superior glenoid labrum lesion of right shoulder, initial encounter; M19.011 Primary osteoarthritis, right shoulder; M75.41 Impingement syndrome of right shoulder; M24.011 Loose body in right shoulder; M94.211 Chondromalacia, right shoulder; G89.18 Other acute postprocedural pain
CPT/HCPCS: 29827; 29828; 29826; 29824; 29823; 01630; 64415; 76942; 99100; C1713; J0171; J0330; J0690; J1100; J2250; J2405; J2704; J2795; J3010; J7120; L3670

== ENCOUNTER 2024-01-11 10:15 | Outpatient (RCR) | payer OTHER, SELFPAY ==
--- NOTE | 2023-09-24 14:01 | PT.OPEX ---
PT Doyle Outpatient Eval PT [facility] Outpatient Eval Start: 09/24/23 09:25 Freq: Status: Active Protocol: Document 09/24/23 11:03 DOMINGA (Rec: 09/24/23 13:53 DOMINGA [id number]) E-signed By Montrell Bran PT Physical Therapy Outpatient Evaluation Insurance Information Insurance Name [facility],Medicare B Medical Diagnosis 1. Right shoulder arthroscopic rotator cuff repair - massive 3 tendon repair 2. Right shoulder arthroscopic Bankart/labral repair 3. Right shoulder arthroscopic biceps tenodesis 4. Right shoulder arthroscopic distal clavicle excision 5. Right shoulder arthroscopic extensive glenohumeral debridement 6. Right shoulder arthroscopic bursectomy, subacromial decompression/ partial acromioplasty. Treating Diagnosis Right shoulder pain Right shoulder weakness Decreased right shoulder ROM Referring MD Bueno Subjective Subjective Pt. reports falling onto outstretched right arm when trying to step over an electric fence on 07/29/23. He went to the ED and was found to have dislocated his right shoulder. He then saw Ortho and had an MRI which revealed a torn rotator cuff along with labral tear and glenoid chondral defect with loose body present. He underwent surgical procedure on 09/02/23 to repair 3 tendon massive tear along with biceps tenodesis, Bankart repair, DCE , and SAD. Orders are for PROM only until 6 weeks post-op. He states that his pain is well controlled and he has been wearing the immobilizer as instructed. He is right handed and his left UE is limited by prior left elbow replacement with reduced elbow ROM. PMH includes; CAD with stent; sleep apnea; and protate CA with surgery. 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 Pain Comments 2 Date of Last Physician Visit 09/02/23 Date of Surgery (If applicable) 10/01/23 Current Work Status Retired Preferred Name Reinaldo Precautions Treatment Precautions/Contraindications PROM only until 6 week Ortho follow up with ER restricted to neutral. Objective Other/Pertinent Objective Right shoulder PROM: flexion 95 degrees abduction 60 degrees ER to neutral Elbow AROM WFL Assessment Assessment/Impression Objectively today, pt. demonstrates; minimal shoulder pain complaints at rest and during PROM activities; mild right deltoid and upper trap hypertonus/guarding; mild/ moderate right GHJ capsule restrictions; 95 degrees of passive right shoulder flexion with neutral ER (per subscapularis repair precautions); forward shoulder posture; and scapular deconditioning with mild generalized weakness noted. He would benefit from skilled therapy working on progressive PROM in phase one with transition to AAROM, AROM, and strengthening as guided by Ortho team. Primary Functional Limitations Reaching, lifting, sleeping on right, carrying Plan of Care Rehabilitation Potential Excellent Physical Therapy Goals 1. Pt. will be indep. with HEP for self maintenance in 12 weeks. 2. Pt. will demonstrate improved shoulder PROM to functional levels in 4 weeks 3. Pt. will be able to progress to right shoulder AROM and strengthening in 4 weeks. 4. Pt. will demonstrate functional right shoulder AROM with 4/5 strength for normal ADL's in 12 weeks. Coordination/Communication With Referral Source Treatment Plan/Direct Interventions Joint Mobilization,Manual Therapy,Neuromuscular Re-ed, Therapeutic Activities, Therapeutic Exercises Frequency/Duration 2 times a week initially, then weekly, then every other week for 12-16 weeks Patient Will Be Discharged From Therapy Independent w/HEP, Independently Progressing Evaluation Billing Complexity Moderate Certification Information Initial Certification Date 09/24/23 Ending Certification Date 12/18/23 Provider Signature Shows Agreement With POC & Medical Necessity Physician Signature & Date Requested Please Sign/Date Here Physician Comment/Change : Physician NPI Number #
== END 2024-02-05 14:33 | disposition home or self-care (01) ==
PROVIDERS: PCP Surgery; Visit Provider Orthopaedic Surgery Sports Medicine
DX: Z98.890 Other specified postprocedural states (principal); Z51.89 Encounter for other specified aftercare
CPT/HCPCS: 97110; 97140; 97162

== ENCOUNTER 2025-04-26 08:48 | Emergency (ER) | payer OTHER, SELFPAY ==
[2025-04-26 08:50] VITALS: BP 125/84; PULSE 98; RESP 18; TEMP 37.8; O2SAT 95; BMI 30.3
--- NOTE | 2025-04-26 09:00 | ED.GENADULT ---
HPI - General Adult General Date Seen: 04/26/25 Chief complaint: Urogenital Problems, Male Stated complaint: Groin pain, unable to urinate Time Seen by Provider: 04/26/25 08:57 History of Present Illness HPI narrative: 74 yo M with a past medical history of prostate cancer with a prostatectomy done about 15 years ago (for prostate cancer, not metastatic). Subsequent checkups with his urologist apparently her included yearly PSH is which have been low. He also has a past medical history of prior right shoulder dislocation and rotator cuff tear, coronary disease, hypertension, hyperlipidemia, colon polyps. He presents to the ER with lower abdominal pain, right groin pain, and urinary retention. Says he normally does not have any trouble urinating but starting on Thursday he noted that he was having some difficulty with urination and since Thursday, 3 days ago his not been able to void more than a couple of drops. He has noted increasing pain in his lower abdomen in the suprapubic region and on the right. He is also not having bowel movements. He is not nauseous or vomiting. He does have some chills this morning but no other fever. No cough. No known injury. No rash or sores on his genitals or abdomen. Related Data Home Medications ?Medication ?Instructions ?Recorded ?Confirmed aspirin 81 mg tablet,delayed 81 mg PO QDAY 07/31/23 04/26/25 release metoprolol succinate 25 mg 12.5 mg PO QDAY 07/31/23 04/26/25 tablet,extended release 24 hr rosuvastatin 40 mg tablet (Crestor) 40 mg PO QDAY 07/31/23 04/26/25 valsartan 40 mg tablet 40 mg PO QDAY 07/31/23 04/26/25 Previous Rx's ?Medication ?Instructions ?Recorded amoxicillin 875 mg-potassium 1 tab PO BID #14 tabs 04/26/25 clavulanate 125 mg tablet hydrocodone 5 mg-acetaminophen 325 1 tab PO Q4-6H PRN pain #10 tabs 04/26/25 mg tablet ondansetron HCl 4 mg tablet 4 mg PO Q8H PRN nausea and 04/26/25 vomiting #10 tabs Allergies Allergy/AdvReac Type Severity Reaction Status Date / Time No Known Drug Allergies Allergy Verified 04/26/25 08:56 [facility] Medical History (Updated 04/26/25 @ 11:27 by Ryan Kaba MD) Anterior dislocation of right shoulder ?S43.014A - Anterior dislocation of right humerus, initial encounter (ICD-10) CAD (coronary artery disease) ?I25.10 - Atherosclerotic heart disease of [place] coronary artery without angina pectoris (ICD-10) Sleep apnea ?G47.30 - Sleep apnea, unspecified (ICD-10) Surgical History (Updated 10/15/23 @ 08:57 by Valerie Orourke) History of arthroscopy of right shoulder (09/07/23) ?Z98.890 - Other specified postprocedural states (ICD-10) Hx of nasal septoplasty ?Z98.890 - Other specified postprocedural states (ICD-10) History of left elbow replacement (~2013) ?Z96.622 - Presence of left artificial elbow joint (ICD-10) History of heart artery stent (~12/2022) ?Z95.5 - Presence of coronary angioplasty implant and graft (ICD-10) History of prostatectomy ?Z90.79 - Acquired absence of other genital organ(s) (ICD-10) Social History (Updated 07/31/23 @ 10:33 by Antonella Jamison ~ [facility], [facility]) Smoking Status: Never smoker Do you use any of these nicotine containing products: None Second hand tobacco smoke exposure: Yes ( smokes) How often do you have a drink containing alcohol: 2-4 times a month How many standard drinks containing alcohol do you have on a typical day: 1 or 2 How often do you have six or more drinks on one occasion: Never AUDIT-C Alcohol total score: 2 Non-prescribed substance use: denies use Caffeine: Yes service: Yes Exam Narrative: Exam Narrative: Constitutional: Appears well-developed and well-nourished. Alert. Conversant but uncomfortable. Non toxic. HENT: Head: Atraumatic. Nose: Nose normal. Mouth/Throat: Oral mucosa is clear and moist. no trismus. Eyes: Conjunctivae normal. EOM normal. Pupils equal, round, and reactive to light. No scleral icterus. Neck: Normal range of motion. Neck supple. No tracheal deviation present. Cardiovascular: Normal rate, regular rhythm. No gallop. No friction rub. No murmur heard. Symmetric radial artery pulses Pulmonary/Chest: Effort normal. No stridor. No respiratory distress. No wheezes. No rales. No rhonchi . No tenderness. Abdominal: Soft. Bowel sounds normal. No distension. No mass. Suprapubic and bilateral lower quadrant tenderness. No rebound. No guarding. : Normal circumcised penis. No inguinal masses. Testicles and scrotum normal. Musculoskeletal: RUE: Normal range of motion. No tenderness. No deformity LUE: Normal range of motion. No tenderness. No deformity RLE: Normal range of motion. No edema. No tenderness. No deformity LLE: Normal range of motion. No edema. No tenderness. No deformity Lymph: No inguinal adenopathy. Neurological: Alert and oriented to person, place, and time. Normal strength. CN II-VII intact. No sensory deficit. GCS eye subscore is 4. GCS verbal subscore is 5. GCS motor subscore is 6. Normal coordination Skin: Skin is warm and dry. No rash noted. No pallor. Normal capillary refill. Psychiatric: Normal mood. Normal affect. Const: Vital Signs, click to edit/add: Vital Signs - 24 hr 04/26/25 08:50 04/26/25 10:05 04/26/25 11:23 Temperature 100.0 F H 100.3 F H Pulse Rate [Pulse Oximeter] 98 90 93 Respiratory Rate 18 20 20 Blood Pressure [Ri ght Upper Arm] 125/84 123/80 125/79 Pulse Oximetry 95 95 96 Oxygen Delivery Me thod Room Air Room Air Room Air Course Course ED Course: Recheck-had just over 300 mL out but by Scott catheter. Pain down from a 7 to a 5. Repeat exam still revealing bilateral lower quadrant tenderness and firmness. Will obtain labs and CT. Reevaluation(s) Reevaluation #1: Recheck-labs came back showing a white count of 14. Kidney function normal. Urinalysis shows no hematuria or pyuria to suggest infection. CT scan came back showing acute uncomplicated sigmoid diverticulitis. Vital Signs Vital signs: Initial Vital Signs Temperature 100.0 F H 04/26/25 08:50 Temperature Source Temporal Artery Scan 04/26/25 08:50 Pulse Rate 98 04/26/25 08:50 Respiratory Rate 18 04/26/25 08:50 Blood Pressure 125/84 04/26/25 08:50 Blood Pressure Mean 97 04/26/25 08:50 Blood Pressure Position Sitting 04/26/25 08:50 Pulse Oximetry 95 04/26/25 08:50 Oxygen Delivery Method Room Air 04/26/25 08:50 Vital Signs Temperature 100.0 F H 04/26/25 08:50 Pulse Rate 98 04/26/25 08:50 Respiratory Rate 18 04/26/25 08:50 Blood Pressure 125/84 04/26/25 08:50 Pulse Oximetry 95 04/26/25 08:50 Oxygen Delivery Method Room Air 04/26/25 08:50 Temperature 100.3 F H 04/26/25 11:23 Pulse Rate 93 04/26/25 11:23 Respiratory Rate 20 04/26/25 11:23 Blood Pressure 125/79 04/26/25 11:23 Pulse Oximetry 96 04/26/25 11:23 Oxygen Delivery Method Room Air 04/26/25 11:23 Medications Administered Medications: Discontinued Medications Generic Name Dose Route Start Last Admin Trade Name Freq PRN Reason Stop Dose Admin Amoxicillin/Clavulanate Potassium 875 mg 04/26/25 11:25 04/26/25 11:35 Amoxicillin/Clavulanate 875 Mg/125 Mg Tablet PO 04/26/25 11:26 875 mg ONCE ONE Administration Lidocaine HCl 6 ml 04/26/25 09:10 04/26/25 09:15 Lidocaine Hcl 2 % Jelly (Top) Sterile UR 6 ml ONCE PRN Administration Medical Decision Making MDM Narrative Medical decision making narrative: Presented to the Emergency Department with suprapubic and bilateral lower quadrant abdominal pain worsening for the past couple of days and sensation that he is not really able to urinate much for the past couple days either. First concern is for possible acute urinary retention causing his pain. Bedside bladder scan showed revealed and ultrasound bladder volume of 333 mL. We were concerned that this might be an under estimation. We did place a Scott catheter and we did get out about 3 or 400 mL of urine. Pain only slightly improved after this. Given that his bladder was not markedly distended with urine, it seems unlikely that a cure urinary retention was causing his pain. Using shared decision making we decided to discontinue his catheter here and send him home with a plan for him to hydrate and monitor for urine output. If he does have more urinary retention he will return to the ER. Urinalysis came back negative for infection but he does have a fever 100.. The differential diagnosis of abdominal pain includes: Appendicitis, Bowel Obstruction, Ulcer, Ischemia, Cholecystitis, Diverticulitis, Pancreatitis, UTI, kidney stone, Enteritis/Colitis, amongst many other etiologies. [ CT imaging shows evidence for acute uncomplicated diverticulitis. White count is elevated . However he is overall hemodynamically stable and comfortable here in the ER. Started on antibiotics for diverticulitis given age and lab findings. At this point I do not think he requires hospitalization for IV antibiotics and there is no evidence for any acute surgical condition. He feels comfortable discharging home with oral antibiotics. s re-evaluation with primary care or return to the ED is indicated. The patient also understands that if they worsen, they should return to the ER right away. I discussed the uncertainty about the diagnosis and answered the patient's questions. Abdominal pain return precautions discussed. Lab Data Labs: Lab Results 04/26/25 04/26/25 Range/Units 09:20 09:45 WBC 14.21 H (4.50-11.00) K/uL RBC 5.02 (4.30-5.90) m/uL Hgb 15.0 (13.5-17.5) gm/dL Hct 44.9 (37.0-53.0) % MCV 89 (80-100) fL MCH 30 (26-34) pg MCHC 33 (32-36) gm/dL RDW Coeff of Karen 12.7 (11.5-15.5) % Plt Count 287 (140-440) K/uL Neut % (Auto) 80.3 H (42.0-72.0) % Lymph % (Auto) 9.2 L (20-44) % [place] % (Auto) 10.3 (0.0-11.0) % Eos % (Auto) 0.0 (0.0-7.0) % Baso % (Auto) 0.1 (0.0-3.0) % Neut # (Auto) 11.40 H (1.7-7.0) K/uL Lymph # (Auto) 1.30 (0.90-2.90) K/uL [place] # (Auto) 1.50 H (0.00-0.90) K/UL Eos # (Auto) 0.00 (0.00-0.50) K/uL Baso # (Auto) 0.00 (0.00-0.30) K/uL Abs Immat Gran (auto) 0.00 (0.00-0.30) K/uL Imm/Tot Granulo (auto) 0.1 % Sodium 132 L (135-149) mmol/L Potassium 4.1 (3.6-5.1) mmol/L Chloride 99 (96-114) mmol/L Carbon Dioxide 27 (20-32) mmol/L Anion Gap 6 L (7-15) mEq/L BUN 15 (7-30) mg/dL Creatinine 1.1 (0.5-1.5) mg/dL Estimated Creat Clear 54.78 Estimated GFR 71 ml/min Glucose 130 H (60-115) mg/dL Calcium 9.1 (8.4-10.6) mg/dL Urine Color Yellow (Yellow) Urine Appearance Clear (Clear) Urine pH 5.5 (5.0-8.5) Ur Specific [place] 1.025 (1.000-1.030) Urine Protein Negative (Negative) Urine Glucose (UA) Negative (Negative) Urine Ketones Trace A (Negative) Urine Blood Trace-intact A (Negative) Urine Nitrite Negative (Negative) Urine Bilirubin Negative (Negative) Urine Urobilinogen 0.2 (0.2-1.0) Ur Leukocyte Esterase Negative (Negative) Urine RBC 0-2 (0-2) Urine WBC 0-2 (0-5) Ur Squamous Epith Cells None (None-Few) Urine Bacteria None (None) Discharge Plan Discharge Clinical Impression: Diverticulitis Patient Disposition: Home, Self-Care Condition: Stable Instructions: Diverticulitis (DC) Additional Instructions: As we discussed, your laboratory workup and CT scan shows signs that you have a condition called ?diverticulitis? today. This is an inflammation and infection of your intestine. We can typically treat this with a course of antibiotics. Usually takes about 48 hours after starting antibiotics before your pain and symptoms will start to improve. Please return to the ER recheck with your doctor if you are not substantially improving within 48-72 hours. As we discussed please come back to the ER right away if you have worsening pain, high fever, nausea and vomiting, bloody stools, weakness, or any concerns Please start on the antibiotic (Augmentin). Urine your 1st dose this morning your next dose should be this evening. You can use Tylenol or ibuprofen if needed for pain. Use the prescription pain killer (Roy) if needed 1st more severe pain. Be careful because Roy can cause dizziness, drowsiness, constipation, and can be addictive. Do not drive for 6 hours after taking Roy. Prescriptions: New amoxicillin-pot clavulanate 875-125 mg tablet 1 tab PO BID Qty: 14 0RF hydrocodone-acetaminophen 5-325 mg tablet 1 tab PO Q4-6H PRN (Reason: pain) Qty: 10 0RF ondansetron HCl 4 mg tablet 4 mg PO Q8H PRN (Reason: nausea and vomiting) Qty: 10 0RF No Action rosuvastatin [Crestor] 40 mg tablet 40 mg PO QDAY metoprolol succinate 25 mg tablet extended release 24 hr 12.5 mg PO QDAY valsartan 40 mg tablet 40 mg PO QDAY aspirin 81 mg tablet,delayed release (DR/EC) 81 mg PO QDAY Follow Up/Referrals: Nitin Pimentel MD [Staff Physician, Family Practice] Stand Alone Forms: [employer] Info Instructions
[2025-04-26] MEDS: lidocaine HCL 2 % JELLY (TOP) STERILE 6 ML UR (09:15)
[2025-04-26 09:25] LABS: Appearance Urine Clear (Clear)
--- NOTE | 2025-04-26 09:36 | CRLHL7_ITS ---
For Patients: As a result of the Century Cures Act, medical imaging exams and procedure reports are released immediately into your electronic medical record. You may view this report before your referring provider. If you have questions, please contact your health care provider. INDICATION: Lower abdominal pain and urinary retention with a history of prostate cancer. COMPARISON: 02/12/2014 TECHNIQUE: CT of the abdomen and pelvis without intravenous contrast. Multiplanar axial, coronal, and sagittal reformats were reconstructed. Contrast: None. FINDINGS: Lung bases: Mild basilar reticulation. Calcified granulomas. No worrisome nodules. Liver: Normal noncontrast liver. Gallbladder and bile ducts: Normal gallbladder. No bile duct dilation. Pancreas: Normal noncontrast pancreas. Spleen: Normal spleen size. Adrenal glands: No adrenal mass. Kidneys: Normal renal size and position. No contour deforming cyst or mass. No calculi. No urinary tract dilation. Urinary bladder: The bladder is decompressed with a Scott catheter. Pelvis: No significant residual prostate tissue. Normal-appearing seminal vesicles. Vessels: Mild atherosclerosis. No aortic aneurysm. Bowel: Focally inflamed sigmoid diverticulum. No focal or free air. No abscess or phlegmon. There is substantial adjacent inflammatory stranding that extends down towards the dome of the bladder. No other inflamed bowel. Normal appendix. [id number] stool burden. Lymph nodes: No adenopathy. Peritoneum: No ascites or free air. Abdominal wall: Prior bilateral inguinal hernia repair. Bones: Progressive degenerative change of the pubic symphysis with a subchondral cyst. No acute or healing fractures. Lumbosacral disc and facet degeneration. No focal worrisome bone lesions. IMPRESSION: 1. Acute uncomplicated sigmoid diverticulitis. 2. There is a moderate amount of adjacent inflammation and induration which extends down towards the bladder dome. No findings of fistulization on this examination. Please note that all CT scans at this facility use dose modulation, iterative reconstruction, and/or weight-based dosing when appropriate to reduce radiation dose to as low as reasonably achievable. Dictated by Chel Melvin MD @ 04/26/2025 10:16:31 AM (Electronically Signed)
[2025-04-26 09:50] LABS: Hematocrit* 44.9 % (37.0-53.0); Hemoglobin* 15.0 gm/dL (13.5-17.5); Immature Granulocytes Pct Auto 0.1 %; Mean Corpuscular HGB Conc 33 gm/dL (32-36); Mean Corpuscular Hemoglobin 30 pg (26-34); Mean Corpuscular Volume 89 fL (80-100); RDW Coefficient of Variation % 12.7 % (11.5-15.5); Red Blood Count* 5.02 m/uL (4.30-5.90); White Blood Count* 14.21 K/uL (4.50-11.00)
[2025-04-26 09:52] LABS: Immature Granulocytes Abs Auto 0.00 K/uL (0.00-0.30); Lymphocytes Absolute Auto 1.30 K/uL (0.90-2.90); Slide Review Reflex No
[2025-04-26 10:05] VITALS: BP 123/80; PULSE 90; RESP 20; O2SAT 95
[2025-04-26 10:22] LABS: Chloride* 99 mmol/L (96-114); Potassium* 4.1 mmol/L (3.6-5.1); Sodium* 132 mmol/L (135-149)
[2025-04-26 10:25] LABS: Anion Gap 6 mEq/L (7-15); Blood Urea Nitrogen* 15 mg/dL (7-30); Calcium* 9.1 mg/dL (8.4-10.6); Carbon Dioxide* 27 mmol/L (20-32); Creatinine* 1.1 mg/dL (0.5-1.5); Est. Creatinine Clearance* 54.78; Estimated Glomerular Filt Rate 71 ml/min; Glucose* 130 mg/dL (60-115)
[2025-04-26 11:23] VITALS: BP 125/79; PULSE 93; RESP 20; TEMP 37.9; O2SAT 96
== END 2025-04-26 11:46 | disposition home or self-care (01) ==
PROVIDERS: Emergency Provider Emergency Medicine; PCP Student in an Organized Health Care Education/Training Program
DX: K57.30 Diverticulosis of large intestine without perforation or abscess without bleeding (principal)
CPT/HCPCS: 51702; 36415; 51798; 74176; 80048; 81001; 85025; 99283; 99284; A9270